=== PATIENT | male | born 1975 | race Caucasian/White ===

== ENCOUNTER 2022-08-09 04:38 | Day surgery (SDC) | payer OTHER ==
[2022-08-08 14:02] VITALS: BMI 31.7
[2022-08-09 10:41] VITALS: BP 106/80; PULSE 65; RESP 17
[2022-08-09 14:19] VITALS: TEMP 97.3
== END 2022-08-09 09:50 | disposition home or self-care (01) ==
LOC: JASU-ENDO 04:38
PROVIDERS: ATTEND Internal Medicine Gastroenterology
PROC: 0DJD8ZZ Inspection of Lower Intestinal Tract, Via Natural or Artificial Opening Endoscopic (ICD-10-PCS; principal; 2022-08-09 10:00)
DX: Z12.11 Encounter for screening for malignant neoplasm of colon (principal); K57.30 Diverticulosis of large intestine without perforation or abscess without bleeding